=== PATIENT | female | born 1995 | race Caucasian/White ===

== ENCOUNTER 2017-09-04 21:50 | Emergency (ER) | payer OTHER ==
[2017-09-04 21:54] VITALS: BP 136/78; PULSE 76; TEMP 97.9; BMI 29.9
--- NOTE | 2017-09-04 22:03 | PDOC ---
History of Present Illness - General History Source: Patient Exam Limitations: No Limitations - History of Present Illness Initial Comments: 09/05/17 01:21 The patient is a 22 year old female with a past medical history of gallstones ( 6 months ago) who presents to the emergency department for evaluation of abdominal pain. The patient reports intermittent episodes of moderate RUQ abdominal pain beginning at 11am. She states she ate soup this morning and at 7pm. The patient reports associated symptoms of chills, nausea, and diaphoresis. Pt states she was told she had small gallstones 6 months ago that can be ameliorated through a low fat diet. The patient notes she has had mild intermittent RUQ pain over the last 6 months which fluctuates based on the type of foods she ate. The patient states she is currently taking advil and xanter. Of note, pt states she had the cold a few days ago. The patients LMP came recently, but did not last too long. The patient denies a family history of gallstones, chest pain, shortness of breath, fever, vomiting, and diarrhea. Allergies: NKA Social History: No reported cigarette or drug use. Social alcohol consumption. <Gianni Celaya - Last Filed: 09/05/17 01:21> <Kayla Neal - Last Filed: 09/06/17 04:20> - General Chief Complaint: Pain Stated Complaint: ABD PAIN Time Seen by Provider: 09/04/17 22:02 Past History <Gianni Celaya - Last Filed: 09/05/17 01:21> - Past Medical History GI Disorders: Yes (GALLSTONES) - Immunization History Immunization Up to Date: Yes - Suicide/Smoking/Psychosocial Hx Smoking History: Never smoked Have you smoked in the past 12 months: No Information on smoking cessation initiated: No Hx Alcohol Use: No Drug/Substance Use Hx: No Substance Use Type: None <Kayla Neal - Last Filed: 09/06/17 04:20> - Past Medical History Allergies/Adverse Reactions: Allergies Allergy/AdvReac Type Severity Reaction Status Date / Time No Known Allergies Allergy Verified 09/04/17 21:54 Home Medications: Ambulatory Orders Ranitidine HCl [Zantac] 150 mg PO PRN PRN 09/04/17 Amox-Tr/K Cl [Augmentin - 875Mg Tablet] 1 tab PO BID #14 tablet 09/05/17 Review of Systems - Review of Systems Able to Perform ROS?: Yes Comments:: GENERAL/CONSTITUTIONAL: (+)Chills. No fever. No weakness. HEAD, EYES, EARS, NOSE AND THROAT: No change in vision. No ear pain or discharge. No sore throat. CARDIOVASCULAR: No chest pain or shortness of breath. RESPIRATORY: No cough, wheezing, or hemoptysis. GASTROINTESTINAL: (+)nausea. No vomiting, diarrhea or constipation. GENITOURINARY: No dysuria, frequency, or change in urination. MUSCULOSKELETAL: (+)RUQ pain. No neck or back pain. SKIN: No rash NEUROLOGIC: No headache, vertigo, loss of consciousness, or change in strength/ sensation. ENDOCRINE: No increased thirst. No abnormal weight change. HEMATOLOGIC/LYMPHATIC: No anemia, easy bleeding, or history of blood clots. ALLERGIC/IMMUNOLOGIC: No hives or skin allergy. <Gianni Celaya - Last Filed: 09/05/17 01:21> *Physical Exam - Vital Signs Last Vital Signs Temp Pulse Resp BP Pulse Ox 97.9 F 76 16 136/78 100 09/04/17 21:53 09/04/17 21:53 09/04/17 21:53 09/04/17 21:53 09/04/17 21:53 - Physical Exam Comments: GENERAL: Awake, alert, and fully oriented, in no acute distress HEAD: No signs of trauma EYES: PERRLA, EOMI, sclera anicteric, conjunctiva clear ENT: (+)Right TM swollen and red. Nares patent, oropharynx clear without exudates. Moist mucosa NECK: Normal ROM, supple. LUNGS: Breath sounds equal, clear to auscultation bilaterally. No wheezes, and no crackles HEART: Regular rate and rhythm, normal S1 and S2, no murmurs, rubs or gallops ABDOMEN: (+)Moderate RUQ tenderness. EXTREMITIES: Normal range of motion, no edema. No clubbing or cyanosis. No cords, erythema, or tenderness NEUROLOGICAL: Cranial nerves II through XII grossly intact. Normal speech, normal gait SKIN: Warm, Dry, normal turgor, no rashes or lesions noted. <Gianni Celaya - Last Filed: 09/05/17 01:21> - Vital Signs Last Vital Signs Temp Pulse Resp BP Pulse Ox 97.9 F 76 16 136/78 100 09/04/17 21:53 09/04/17 21:53 09/04/17 21:53 09/04/17 21:53 09/04/17 21:53 <Kayla Neal - Last Filed: 09/06/17 04:20> ED Treatment Course - LABORATORY CBC & Chemistry Diagram: 09/04/17 22:30 09/04/17 22:30 - ADDITIONAL ORDERS Additional order review: Laboratory Results 09/04/17 09/04/17 23:00 22:30 Sodium 140 Potassium 3.6 Chloride 105 Carbon Dioxide 29 Anion Gap 6 L BUN 9 Creatinine 0.6 Creat Clearance w eGFR > 60 Random Glucose 98 Calcium 8.9 Total Bilirubin 0.2 AST 13 L ALT 25 Alkaline Phosphatase 102 Total Protein 7.9 Albumin 4.0 Urine HCG, Qual Negative 09/04/17 22:30 RBC 4.10 MCV 75.5 L MCHC 32.4 RDW 18.5 H MPV 8.4 Neutrophils % 62.9 Lymphocytes % 27.1 D Monocytes % 6.8 Eosinophils % 2.6 Basophils % 0.6 - Medications Given in the ED: ED Medications Discontinued Medications Generic Name Dose Route Start Last Admin Trade Name Francesca PRN Reason Stop Dose Admin Acetaminophen 1,000 mg 09/05/17 00:55 09/05/17 01:00 Ofirmev Injection - IVPB 09/05/17 00:56 1,000 mg ONCE ONE Administration Amoxicillin 500 mg 09/04/17 22:17 09/04/17 22:29 Amoxicillin - PO 09/04/17 22:18 500 mg ONCE ONE Administration <Gianni Celaya - Last Filed: 09/05/17 01:21> - LABORATORY CBC & Chemistry Diagram: 09/04/17 22:30 09/04/17 22:30 <Kayla Neal - Last Filed: 09/06/17 04:20> Medical Decision Making - Medical Decision Making 09/05/17 00:40 Patient Name: NELLA BIRMINGHAM THIS IS A PRELIMINARY REPORT FROM [facility] DATE OF SERVICE: 2017-09-04 23:01:35 IMAGES: 53 EXAM: ABDOMINAL ULTRASOUND LIMITED (RIGHT UPPER QUADRANT) TECHNIQUE : Ultrasound images of the right upper quadrant of the abdomen HISTORY: History of gallstones. Rule out gallbladder wall thickening. COMPARISON: None. FINDINGS: Liver is mildly enlarged at 18.2 cm in length. No focal mass identified. No intrahepatic duct dilatation. Common bile duct measures 0.5 cm diameter. Gallbladder contains multiple gallstones and appears somewhat contracted. Gallbladder wall measures are 0.4 cm in thickness. No pericholecystic fluid. Segmentally visualized pancreas, IVC and right kidney appear unremarkable. IMPRESSION: 1. Cholelithiasis. Gallbladder wall thickening may be secondary to contraction, hepatic parenchymal disease or cholecystitis. Common bile duct is within normal limits at 0.5 cm. 2. Hepatomegaly. THIS DOCUMENT HAS BEEN ELECTRONICALLY SIGNED 09/05/17 01:23 Pt continues to have RUQ pain. We will treat with ofirmev. I spoke to surgery for pt's thickened GB. We are adding on a lipase. We are considering admitting the patient for observation. 09/06/17 04:19 Pt was discharged as she will follow with surgery as an outpatient. She is feeling better and surgeon immigration investigator agrees that pt is stable for discharge. Low fat diet. Pt also will be treated with amox/augmentinfor Otitis media. <Kayla Neal - Last Filed: 09/06/17 04:20> *DC/Admit/Observation/Transfer - Attestations Scribe Attestion: Documentation prepared by Gianni Celaya, acting as medical clerical assistant for Kayla Neal MD. <Gianni Celaya - Last Filed: 09/05/17 01:21> - Discharge Dispostion Decision to Admit order: No <Kayla Neal - Last Filed: 09/06/17 04:20> Diagnosis at time of Disposition: Cholelithiasis, Gall stones, Abdominal pain Otitis media Qualifiers: Otitis media type: other nonsuppurative Chronicity: acute Laterality: right Recurrence: not specified as recurrent Qualified Code(s): H65.191 - Other acute nonsuppurative otitis media, right ear - Discharge Dispostion Disposition: HOME Condition at time of disposition: Improved - Prescriptions Prescriptions: Amox-Tr/K Cl [Augmentin - 875Mg Tablet] 1 tab PO BID #14 tablet - Referrals Referrals: Jensen Westfall MD [Staff Physician] - Geronimo Ann MD [Staff Physician] - - Patient Instructions Printed Discharge Instructions: Middle Ear Infection, DI for Gallstones
[2017-09-04] MEDS ORDERED: AMOXICILLIN 500 MG CAPSULE (FP) PO ONE (22:17)
[2017-09-04] MEDS ORDERED: AMOXICILLIN 500 MG CAPSULE (FP) ONE (22:23)
[2017-09-04 22:34] LABS: BASO % 0.6 % (0-2.0); EOS % 2.6 % (0-4.5); LYMPH % 27.1 % (8-40); MCH 24.5 pg (25.7-33.7); MCHC 32.4 g/dl (32.0-36.0); MEAN CELL VOLUME 75.5 fl (80-96); MEAN PLT VOLUME 8.4 fl (7.5-11.1); MONO % 6.8 % (3.8-10.2); NEUT % 62.9 % (42.8-82.8); PLATELET COUNT 261 K/MM3 (134-434); RDW 18.5 % (11.6-15.6); WHITE BLOOD COUNT 10.5 K/mm3 (4.0-10.0)
[2017-09-04 23:17] LABS: ALK PHOS 102 U/L (45-117); ANION GAP 6 (8-16); BILIRUBIN,TOTAL 0.2 mg/dL (0.2-1.0); BLOOD UREA NITROGEN 9 mg/dL (7-18); CALCIUM 8.9 mg/dL (8.5-10.1); CHLORIDE 105 mmol/L (98-107); CO2 29 mmol/L (21-32); CREATININE 0.6 mg/dL (0.55-1.02); GLUCOSE,RANDOM 98 mg/dL (74-106); POTASSIUM 3.6 mmol/L (3.5-5.1); SGOT/AST 13 U/L (15-37); SGPT/ALT 25 U/L (12-78); SODIUM 140 mmol/L (136-145); TOT PROT 7.9 g/dl (6.4-8.2)
[2017-09-05] MEDS ORDERED: ACETAMINOPHEN 1000 MG/100 ML VIAL (NON FORMULARY) IVPB ONE (00:55)
[2017-09-05] MEDS ORDERED: ACETAMINOPHEN INJECTION 100 ML IVPB ONE (00:56)
--- NOTE | 2017-09-05 02:33 | CONSULT ---
Consult Consult Specialty:: General Surgery Referred by:: Kayla Neal Reason for Consultation:: biliary colic - History of Present Illness Chief Complaint: RUQ pain, nausea History of Present Illness: 22yo F with h/o gallstones and biliary colic presents with RUQ pain today associated with chills and nausea but no vomiting, recent cold symptoms ( runny nose, etc). She last ate rice and meat - avoids particularly greasy foods , and has not had an attack in about 6 months. She has seen a doctor at [facility] and has been trying to avoid surgery but was advised to see a surgeon to discuss cholecystectomy. She was seen her twice previously a few years ago for similar complaints and had US showing contracted gb with stones but no cholecystitis, though HIDA was recommended if needed to r/o cystic duct obstruction. Today's US is similar - wall thickness ~3.5mm but not fully distended, cbd ~4.6mm. She is feeling better after IV Tylenol in ER. WBC 10.5, LFTs and lipase normal. Per ER, she also has right reddened TM and likely otitis media and was started on Amoxicillin. She would like to go home; surgery was asked to evaluate prior to likely discharge. - History Source History Provided By: Patient Limitations to Obtaining History: No Limitations - Past Medical History Hepatobiliary: Yes: Cholelithiasis ...: No - Past Surgical History Past Surgical History: Yes: None - Alcohol/Substance Use Hx Alcohol Use: Yes (social) History of Substance Use: reports: None - Smoking History Smoking history: Current some day smoker Have you smoked in the past 12 months: Yes Aproximately how many cigarettes per day: 0 (smokes hookah socially, no tobacco) - Social History ADL: Independent Occupation: works in restaurant Home Medications - Allergies Allergies/Adverse Reactions: Allergies Allergy/AdvReac Type Severity Reaction Status Date / Time No Known Allergies Allergy Verified 09/04/17 21:54 - Home Medications Home Medications: Ambulatory Orders Ranitidine HCl [Zantac] 150 mg PO PRN PRN 09/04/17 Amox-Tr/K Cl [Augmentin - 875Mg Tablet] 1 tab PO BID #14 tablet 09/05/17 Home Medications (free text): ibuprofen prn occasionally Family Disease History - Family Disease History Family History: Unremarkable Review of Systems - Review of Systems Constitutional: reports: Chills. denies: Fever, Loss of Appetite Eyes: denies: Blurred Vision, Recent Change in Vision HENT: reports: Nasal Congestion (runny nose). denies: Difficult Swallowing, Ear Discharge, Ear Pain, Throat Pain, Ringing in Ears Neck: denies: Swollen Glands, Tenderness Cardiovascular: denies: Chest Pain, Palpitations Respiratory: reports: Other (runny nose, cold symptoms). denies: Cough, SOB Gastrointestinal: reports: Abdominal Pain (with hpi), Nausea (with hpi). denies : Constipation, Diarrhea, Vomiting Genitourinary: denies: Burning, Dysuria Musculoskeletal: denies: Back Pain, Joint Pain, Muscle Pain Integumentary: denies: Change in Color, Rash Neurological: denies: Dizziness, Headache Psychiatric: denies: Anxiety, Depression Physical Exam Vital Signs: Vital Signs Temperature 97.9 F 09/04/17 21:53 Pulse Rate 76 09/04/17 21:53 Respiratory Rate 16 09/04/17 21:53 Blood Pressure 136/78 09/04/17 21:53 O2 Sat by Pulse Oximetry (%) 100 09/04/17 21:53 Constitutional: Yes: Well Nourished, No Distress, Calm Eyes: Yes: Conjunctiva Clear, EOM Intact. No: Sclera Icterus HENT: Yes: Atraumatic, Normocephalic, Other (right ear with reddened TM per ER - not visualized) Neck: Yes: Supple, Trachea Midline Cardiovascular: Yes: Regular Rate and Rhythm. No: Murmur Respiratory: Yes: Regular, CTA Bilaterally Gastrointestinal: Yes: Normal Bowel Sounds, Soft, Abdomen, Obese, Tenderness ( RUQ and epigastric without rebound or guarding), Tenderness, Epigastrium (mild) ...Rectal Exam: Yes: Deferred Renal/: No: CVA Tenderness - Left, CVA Tenderness - Right Musculoskeletal: No: Joint Stiffness, Joint Swelling Extremities: No: Cool, Cyanosis Integumentary: No: Jaundice, Rash Neurological: Yes: Alert, Oriented Psychiatric: Yes: Alert, Oriented Labs: CBC, BMP 09/04/17 22:30 09/04/17 22:30 CMP Sodium 140 mmol/L (136-145) 09/04/17 22:30 Potassium 3.6 mmol/L (3.5-5.1) 09/04/17 22:30 Chloride 105 mmol/L (98-107) 09/04/17 22:30 Carbon Dioxide 29 mmol/L (21-32) 09/04/17 22:30 Anion Gap 6 (8-16) L 09/04/17 22:30 BUN 9 mg/dL (7-18) 09/04/17 22:30 Creatinine 0.6 mg/dL (0.55-1.02) 09/04/17 22:30 Creat Clearance w eGFR > 60 (>60) 09/04/17 22:30 Random Glucose 98 mg/dL (74-106) 09/04/17 22:30 Calcium 8.9 mg/dL (8.5-10.1) 09/04/17 22:30 Total Bilirubin 0.2 mg/dL (0.2-1.0) 09/04/17 22:30 AST 13 U/L (15-37) L 09/04/17 22:30 ALT 25 U/L (12-78) 09/04/17 22:30 Alkaline Phosphatase 102 U/L (45-117) 09/04/17 22:30 Total Protein 7.9 g/dl (6.4-8.2) 09/04/17 22:30 Albumin 4.0 g/dl (3.4-5.0) 09/04/17 22:30 Lipase 116 U/L (73-393) 09/05/17 00:46 Imaging - Results Ultrasound: Report Reviewed, Image Reviewed (images personally reviewed from today and previous US - multiple gallstones, mostly contracted gallbladder with mildly thickened wall, no pericholecystic fluid, no sig ductal dilation (CHD 4.6mm today, was 2.4mm couple years ago), no intrahepatic dilation) Problem List - Problems (1) Calculus of gallbladder without cholecystitis without obstruction Assessment/Plan: patient with history of cholelithiasis, biliary colic, has been advised to see surgery in past, has seen MD at [facility] who discussed options including but not limited to surgery - tries to follow low-fat diet and had not had pain in about 6 months, but still with multiple stones and likely element of chronic cholecystitis without clear signs of acute also with right otitis media and cold/URI symptoms today cholecystectomy not emergent at this time - would defer until acute infection resolves for general anesthesia feeling better after IV tylenol in ER Zantac at home may have helped a little too ok for po trial and d/c home with follow up with PMD for ear infection strongly advise f/u with surgery to schedule elective laparoscopic possible open cholecystectomy when acute otitis resolves gave her my card and ER may provide an additional referral depending on her insurance needs Discussed with patient risks, benefits and alternatives of laparoscopic possible open cholecystectomy, including but not limited to bleeding, infection , injury to adjacent structures, bile leak or ductal injury, intraabdominal abscess, need for further procedures, ; alternatives include delayed or no surgery - risks of this include recurrence of biliary colic, cholecystitis, cholangitis, pancreatitis. Patient agreeable to outpatient followup. Code(s): K80.20 - CALCULUS OF GALLBLADDER W/O CHOLECYSTITIS W/O OBSTRUCTION (2) RUQ pain Assessment/Plan: tender but better Code(s): R10.11 - RIGHT UPPER QUADRANT PAIN (3) Nausea alone Assessment/Plan: resolved Code(s): R11.0 - NAUSEA (4) Otitis media Assessment/Plan: see above ER to Rx antibiotic f/u with PMD Code(s): H66.90 - OTITIS MEDIA, UNSPECIFIED, UNSPECIFIED EAR Qualifiers: Otitis media type: other nonsuppurative Chronicity: acute Laterality: right Recurrence: not specified as recurrent Qualified Code(s): H65.191 - Other acute nonsuppurative otitis media, right ear
== END 2017-09-05 02:33 | disposition home or self-care (01) ==
LOC: JER 21:50
PROC: 3E033NZ Introduction of Analgesics, Hypnotics, Sedatives into Peripheral Vein, Percutaneous Approach (ICD-10-PCS; principal; 2017-09-04)
DX: K80.20 Calculus of gallbladder without cholecystitis without obstruction (principal); H65.191 Other acute nonsuppurative otitis media, right ear
CPT/HCPCS: 36415; 76705-TC; 80053; 83690; 84703; 85025; 96374; 99282-25; J0131